=== PATIENT | female | born 1990 | race Caucasian/White ===

== ENCOUNTER 2022-02-27 04:45 | Emergency (ER) | payer OTHER ==
[2022-02-27 05:57] LABS: HEMOGLOBIN 13.1 gm/dl (12.3-15.3); RED BLOOD COUNT 4.12 M/UL (4.00-5.10); WHITE BLOOD COUNT 6.8 K/UL (4.5-11.0)
[2022-02-27 06:18] LABS: BUN/CREATININE RATIO 21 (0-10)
== END 2022-02-27 08:30 | disposition left against medical advice (07) ==
LOC: ER1 04:45
PROVIDERS: Family Medicine
DX: M54.50 Low back pain, unspecified (principal); R10.9 Unspecified abdominal pain; Z88.0 Allergy status to penicillin
CPT/HCPCS: 80053; 83690; 85025; 99283